=== PATIENT | female | born 1970 | race Two or more races ===

== ENCOUNTER 2023-03-11 19:18 | Emergency (ER) | payer OTHER ==
[~2023-03-11] VITALS: Ht 154.9 cm; Wt 55.8 kg
--- NOTE | 2023-03-11 19:38 | NUR ---
YVONNE FROM HOME C/OANXIETY S/P INCIDENTAL INGESTION OF SHROOM CHOCOLATES 1GM. PT A/OX3. TOLERATING R/A WELL WITH NO RESP DISTRESS. SAFETY MEASURES IN PLACE. CONNECTED PT TO POX AND MONITOR.
[2023-03-11] MEDS ORDERED: LORAZEPAM INJ 2 MG/ML VIAL ONE (19:47)
[2023-03-11] MEDS ORDERED: LORAZEPAM INJ 2 MG/ML VIAL IV ONE (20:00)
--- NOTE | 2023-03-11 20:46 | NUR ---
Patient discharged to home in stable condition with . Written and verbal after care instructions given. Patient verbalizes understanding of instruction. IV removed. Catheter intact and site benign. Pressure and 4x4 applied to site. No bleeding noted.
[2023-03-11 21:55] VITALS: BP 121/99
== END 2023-03-11 22:17 | disposition home or self-care (01) ==
LOC: ER 19:26
DX: T40.991A Poisoning by other psychodysleptics [hallucinogens], accidental (unintentional), initial encounter (principal); I10 Essential (primary) hypertension; E11.9 Type 2 diabetes mellitus without complications; Y92.89 Other specified places as the place of occurrence of the external cause
CPT/HCPCS: 99283; 96374; J2060; J7030